=== PATIENT | female | born 1945 | race Caucasian/White ===

== ENCOUNTER → 2023-03-07 | Outpatient (CLI) | payer MEDICARE ==
--- NOTE | 2023-03-08 17:12 | MR ---
EXAMINATION TYPE: MR lumbar spine wo con DATE OF EXAM: 03/07/2023 COMPARISON: None HISTORY: 77 year-old female M47.816 Lower back pain x 2 months. TECHNIQUE: Multiplanar, multisequence images of the lumbar spine were acquired without IV contrast. FINDINGS: There is a mild inferior endplate deformity of L2 with a horizontal low signal band that shows edema on STIR sequence. This appears to be a site of compression fracture with mild retropulsion into the v entral spinal canal. Along with ligamentum flavum thickening, there is mild overall narrowing of the spinal canal at this level. There is levoconvex curvature of the lumbar spine. Heterogeneous marrow signal suggests red marrow hy perplasia. Suspect some superimposed motor type II laterally endplate change associated with the mode rate multilevel degenerative disc disease. Bulging discs are present throughout along with ligamentum flavum thickening and facet arthropathy. Trace grade 1 anterolisthesis L3-L4. Remaining alignment is maintained. Bulging disks impress on the ventral thecal sac at nearly all levels and contribute to minimal to mil d spinal canal narrowing. No nanette canal compromise seen. On the right, changes result in moderate neural foraminal stenoses at L1-L2 and L2-L3. Mild to modera te at L4-L5. Mild L3-L4 and L5-S1. On the left, there is variable mild neuroforaminal narrowing throughout. Conus medullaris is normal. No prevertebral or paravertebral soft tissue abnormality. IMPRESSION: 1. Levoconvex curvature. Multilevel facet arthropathy and moderate degenerative disc disease througho ut. Degenerative grade 1 anterolisthesis L4-L5. 2. Mild inferior endplate compression fracture of L2 is suspected acute to subacute. Slight retropuls ion into the ventral spinal canal contributes to mild narrowing of the spinal canal. 3. Additional levels of minimal to mild spinal canal narrowing throughout due to posterior disc bulge s at nearly all levels. 4. Moderate neuroforaminal stenosis on the right at L1-L2 and L2-L3. Mild at additional levels on bot h sides as outlined above.
== END | disposition home or self-care (01) ==
LOC: RADMRIMAIN 10:32
PROVIDERS: ATTEND Physical Medicine & Rehabilitation
DX: M51.16 Intervertebral disc disorders with radiculopathy, lumbar region (principal); M47.26 Other spondylosis with radiculopathy, lumbar region; M48.56XA Collapsed vertebra, not elsewhere classified, lumbar region, initial encounter for fracture; M41.86 Other forms of scoliosis, lumbar region; M43.16 Spondylolisthesis, lumbar region; M99.73 Connective tissue and disc stenosis of intervertebral foramina of lumbar region
CPT/HCPCS: 72148